=== PATIENT | female | born 1990 | race Caucasian/White ===

== ENCOUNTER 2021-03-05 17:00 | Emergency (ER) | payer OTHER ==
[2021-03-06] MEDS ORDERED: ELIQUIS5 MG PO (12:23)
== END 2021-03-05 19:05 | disposition home or self-care (01) ==
LOC: ER1 17:00
DX: I82.621 Acute embolism and thrombosis of deep veins of right upper extremity (principal)
CPT/HCPCS: 71046; 96372; 99283; J1650

== ENCOUNTER 2021-03-06 10:16 | Emergency (ER) | payer OTHER ==
[2021-03-06 11:24] LABS: HEMOGLOBIN 11.5 gm/dl (12.3-15.3); RED BLOOD COUNT 4.53 M/UL (4.00-5.10); WHITE BLOOD COUNT 8.9 K/UL (4.5-11.0)
[2021-03-06 11:35] LABS: BUN/CREATININE RATIO 23 (0-10)
[2021-03-06] MEDS ORDERED: ELIQUIS5 MG PO (12:23)
== END 2021-03-06 12:57 | disposition home or self-care (01) ==
LOC: ER1 10:16
PROVIDERS: Student in an Organized Health Care Education/Training Program
DX: I82.621 Acute embolism and thrombosis of deep veins of right upper extremity (principal); F17.210 Nicotine dependence, cigarettes, uncomplicated; Z88.5 Allergy status to narcotic agent
CPT/HCPCS: 80048; 85025; 85610; 85730; 99283

== ENCOUNTER → 2021-03-06 | Outpatient (CLI) | payer OTHER ==
[~2021-03-06] MED LIST: ELIQUIS5 MG PO
== END ==
LOC: US 09:22
DX: R22.31 Localized swelling, mass and lump, right upper limb (principal); I82.621 Acute embolism and thrombosis of deep veins of right upper extremity
CPT/HCPCS: 93971

== ENCOUNTER 2021-03-21 17:30 | Emergency (ER) | payer OTHER ==
[2021-03-21 18:15] LABS: HEMOGLOBIN 11.9 gm/dl (12.3-15.3); RED BLOOD COUNT 4.99 M/UL (4.00-5.10); WHITE BLOOD COUNT 9.4 K/UL (4.5-11.0)
[2021-03-21 18:47] LABS: BUN/CREATININE RATIO 20 (0-10)
== END 2021-03-21 22:03 | disposition home or self-care (01) ==
LOC: ER1 17:30
PROVIDERS: Physician Assistant Medical
DX: R07.89 Other chest pain (principal); F41.9 Anxiety disorder, unspecified; I82.621 Acute embolism and thrombosis of deep veins of right upper extremity; Z79.01 Long term (current) use of anticoagulants
CPT/HCPCS: 80053; 82550; 82553; 83874; 84484; 85025; 85610; 85730; 93005; 99285

== ENCOUNTER → 2021-05-26 | Outpatient (CLI) | payer OTHER | LOC: LAB 12:23 | DX: I82.621 Acute embolism and thrombosis of deep veins of right upper extremity (principal); R06.02 Shortness of breath | CPT/HCPCS: 36415; 85379 ==

== ENCOUNTER → 2021-05-27 | Outpatient (CLI) | payer OTHER | LOC: LAB 10:44 | DX: Z51.81 Encounter for therapeutic drug level monitoring (principal); Z79.02 Long term (current) use of antithrombotics/antiplatelets; I82.621 Acute embolism and thrombosis of deep veins of right upper extremity; R06.02 Shortness of breath | CPT/HCPCS: 36415; 85130 ==

== ENCOUNTER → 2021-06-02 | Outpatient (CLI) | payer OTHER | LOC: LAB 15:19 | DX: I82.621 Acute embolism and thrombosis of deep veins of right upper extremity (principal); R06.02 Shortness of breath ==

== ENCOUNTER 2021-07-02 14:24 | Emergency (ER) | payer OTHER ==
[2021-07-02 15:21] LABS: HEMOGLOBIN 13.6 gm/dl (12.3-15.3); RED BLOOD COUNT 5.1 M/UL (4.00-5.10); WHITE BLOOD COUNT 7.3 K/UL (4.5-11.0)
[2021-07-02 16:03] LABS: BUN/CREATININE RATIO 12 (0-10)
== END 2021-07-02 16:55 | disposition home or self-care (01) ==
LOC: ER1 14:24
PROVIDERS: Emergency Medicine
DX: R07.9 Chest pain, unspecified (principal)
CPT/HCPCS: 71045; 80048; 84484; 85025; 93005; 99285

== ENCOUNTER → 2021-11-26 | Outpatient (CLI) | payer OTHER | LOC: RAD 15:35 | DX: M54.31 Sciatica, right side (principal) | CPT/HCPCS: 72100 ==

== ENCOUNTER 2021-12-10 14:04 | Emergency (ER) | payer OTHER ==
[2021-12-10] MEDS ORDERED: CYCLOBENZAPRINE10 MG PO (16:54)
[2021-12-10] MEDS ORDERED: MEDROL DOSEPAK 24 MG PO (16:54)
== END 2021-12-10 17:24 | disposition home or self-care (01) ==
LOC: ER1 14:04
DX: M47.816 Spondylosis without myelopathy or radiculopathy, lumbar region (principal)
CPT/HCPCS: 72131; 73501; 96372; 99283; J2930